=== PATIENT | female | born 1960 | race Caucasian/White ===

== ENCOUNTER 2017-10-11 14:46 | Emergency (ER) | payer BC, OTHER ==
[2017-10-11 17:11] VITALS: BP 113/75
[2017-10-11] MEDS ORDERED: HYDROcodone/ACETAMIN 5-325 MG* 1 TAB PO ONE ×2 (17:40→17:53)
--- NOTE | 2017-10-11 19:33 | UC ---
Hip/Pelvis Pain - HPI Summary HPI Summary: Patient states that approx a week ago she started doing a 20 min pilates class on DVD, after which she felt some lumbago, she followed it again 3 days ago, again having some low back pain; as she was running downhill yesterday she felt an acute pain on right hip and the side of her thigh that migrates to low back sometimes depending on the position and others to the side of hip. She states it hurts to walk but she can bear weight, denies radiation to the back of her leg, denies numbness or tingling. She states tylenol/naproxen have not helped and she has difficulty sleeping since she cannot find a comfortable position - History Of Current Complaint Chief Complaint: UCLowerExtremity Stated Complaint: HIP PAIN (R) Time Seen by Provider: 10/11/17 17:24 Hx Obtained From: Patient Hx Last Menstrual Period: 05/26/13 Onset/Duration: Sudden Onset, Lasting Days Timing: Intermittent Episodes Lasting: - minutes depending on posture and activity Severity Currently: Severe Pain Intensity: 8 Pain Scale Used: 0-10 Numeric Location: Discrete At: - right hip and right thigh Character Of Pain: Dull, Aching, Spasmodic Aggravating Factor(s): Movement, Weight Bearing Alleviating Factor(s): Rest - Risk Factors Septic Arthritis Risk Factor: Negative - Allergies/Home Medications Allergies/Adverse Reactions: Allergies Allergy/AdvReac Type Severity Reaction Status Date / Time No Known Allergies Allergy Verified 10/11/17 17:01 Home Medications: Home Medications Acetaminophen [Tylenol Arthritis] 1,300 mg PO BID PRN 10/11/17 [History Confirmed 10/11/17] Naproxen Sodium [Aleve] 440 mg PO DAILY 10/11/17 [History Confirmed 10/11/17] PMH/Surg Hx/FS Hx/Imm Hx Previously Healthy: Yes - Surgical History Surgical History: Yes Surgery Procedure, Year, and Place: BLADDER SX-2016. RIGHT BREAST BX - Social History Alcohol Use: Occasionally Substance Use Type: None Smoking Status (MU): Never Smoked Tobacco Review of Systems Musculoskeletal: Myalgia All Other Systems Reviewed And Are Negative: Yes Physical Exam Triage Information Reviewed: Yes Appearance: Well-Appearing, Well-Nourished, Pain Distress Vital Signs: Initial Vital Signs Temp 98.5 F 10/11/17 17:03 Pulse 68 10/11/17 17:03 Resp 16 10/11/17 17:03 BP 113/75 10/11/17 17:03 Pulse Ox 100 10/11/17 17:03 Vital Signs Reviewed: Yes Eyes: Positive: Conjunctiva Clear Neck exam: Normal Neck: Positive: Supple, Nontender, No Lymphadenopathy Respiratory: Positive: Chest non-tender, Lungs clear, Normal breath sounds, No respiratory distress Cardiovascular: Positive: RRR, No Murmur, Pulses Normal, Brisk Capillary Refill Abdominal Exam: Normal Bowel Sounds: Positive: Present Musculoskeletal Exam: Other - no tenderness to palpation on trochanteric area or quadriceps. Patient has tenderness upon extension of hip while recumbent. SLR negative. DTR symmetric and present. Gait with mild flexion of trunk Hip Injury Course/Dx - Course Course Of Treatment: d/w patient pain management, start norco as prescribed every 4-6 hrs, f/u with orthopedics and PT. Possible iliopsoas tendinopathy. Follow up with PCP for assessment of clinical improvement. - Differential Dx/Diagnosis Provider Diagnoses: right hip pain Discharge - Sign-Out/Discharge Documenting (check all that apply): Discharge/Admit/Transfer - Discharge Plan Condition: Stable Disposition: HOME Prescriptions: HYDROcodone/ACETAMIN 5-325 MG* [Lenore 5-325 TAB*] 1 tab PO Q6H PRN #6 tab MDD 4 PRN Reason: pain Patient Education Materials: Hydrocodone/Acetaminophen (By mouth) Referrals: Nathalie Girard [Primary Care Provider] - Sam Will MD [Medical Doctor] - Additional Instructions: referral PT - Billing Disposition and Condition Condition: STABLE Disposition: HOME
== END 2017-10-11 18:01 | disposition home or self-care (01) ==
LOC: UCCORT 14:46
DX: M25.551 Pain in right hip (principal)
CPT/HCPCS: 99212; G0463